=== PATIENT | female | born 1960 | race Two or more races ===

== ENCOUNTER → 2025-03-25 | Emergency (ER) | payer OTHER ==
[~2025-03-25] VITALS: Ht 160 cm; Wt 61.2 kg
[~2025-03-25] MED LIST: AMOX-CLAV 875-1 EAC1 PO; FLONASE16 GM NASAL; KETOROLAC TROMETHAMINE 60 MG VIAL IM ONE; PAXLOVID 300-11 EAC1 PO
[2025-03-25 15:06] LABS: BASO % 0.3 % (0.1-1.2); EOS # 0.02 (0.04-0.54); EOS % 0.2 % (0.7-7.0); LYMPH # 0.87 (1.18-3.74); LYMPH % 8.2 % (19.3-53.1); MEAN PLATELET VOLUME 9.70 fl (9.4-12.4); MONO # 0.62 (0.24-0.82); MONO % 5.9 % (4.7-12.5); NEUT # 9.01 (1.56-6.13); NEUT % 85.0 % (34.0-71.1); RED CELL DISTRIBUTION WIDTH 12.8 % (11.6-14.4)
[2025-03-25 15:13] LABS: COVID-19 AG POSITIVE (NEGATIVE)
[2025-03-25 15:19] LABS: ERYTHROCYTE SEDIMENTATION RATE 9 mm/hr (0-30)
[2025-03-25 15:27] LABS: INR 0.95
[2025-03-25 15:30] LABS: ALT/SGPT 52.0 U/L (12-78); AST/SGOT 31.0 U/L (15-37); BILIRUBIN TOTAL 1.45 mg/dL (0.3-1.2); BUN CREA RATIO 18.0 (7.0-25.0); CREATININE SERUM 0.79 mg/dL (0.55-1.02); GFR 73.04; GLOBULINA 3.3 G/DL (2.4-3.5); GLUCOSE FASTING 83.0 mg/dL (65-100); OSMOLALITY SERUM 285.0 MOSM/KG (275-295)
[2025-03-25 19:53] LABS: D DIMER < 0.19 MG/L
== END | disposition home or self-care (01) ==
LOC: ER 11:13
PROVIDERS: General Practice
DX: U07.1 COVID-19 (principal); M79.602 Pain in left arm; M79.601 Pain in right arm
CPT/HCPCS: 36415; 93930; 96372; 99284; J1885